=== PATIENT | female | born 1995 | race Caucasian/White ===

== ENCOUNTER → 2016-10-29 | Outpatient (REF) | payer BC, OTHER ==
[~2016-10-29] MED LIST: ACET50TA PO; DOCU10ELUD PO; IBUP600T26 PO; MOM30SS PO; PRENTAB74 PO
== END ==
LOC: M LAB REF 13:05
PROVIDERS: ATTEND Physician Assistant Medical
DX: B34.9 Viral infection, unspecified (principal)

== ENCOUNTER → 2017-07-15 | Outpatient (REF) | payer BC, OTHER | LOC: M LAB REF 13:23 | PROVIDERS: ATTEND Advanced Practice Midwife | DX: Z12.4 Encounter for screening for malignant neoplasm of cervix (principal) ==

== ENCOUNTER → 2018-11-21 | Outpatient (REF) | payer OTHER | LOC: M LAB REF 11:39 | PROVIDERS: ATTEND Physician Assistant | DX: J02.9 Acute pharyngitis, unspecified (principal) ==

== ENCOUNTER → 2019-07-09 | Outpatient (REF) | payer OTHER ==
[~2019-07-09] MED LIST changes: -ACET50TA PO; -DOCU10ELUD PO; +DOCU5LIQ PO; +MAPA500T17 PO
[2019-07-09 14:40] LABS: CHLAMYDIA DNA AMPLIFICATION NEGATIVE (NEGATIVE); GC DNA AMPLIFICATION NEGATIVE (NEGATIVE)
== END ==
LOC: M LAB REF 12:24
PROVIDERS: ATTEND Physician Assistant
DX: R30.0 Dysuria (principal)

== ENCOUNTER → 2020-08-26 | Outpatient (REF) | payer OTHER ==
[2020-08-26 22:09] LABS: APPEARANCE, URINE CLOUDY (CLEAR); BACTERIA, URINE AUTO 1+ (NEGATIVE); BILIRUBIN, URINE AUTO NEGATIVE (NEGATIVE); BLOOD, URINE BLOOD NEGATIVE (NEGATIVE); COLOR, URINE AMBER (YELLOW); GLUCOSE, URINE (UA) AUTO NEGATIVE (NEGATIVE); KETONE, URINE AUTO TRACE mg/dL (NEGATIVE); LEUKOCYTE ESTERASE, URINE AUTO 2+ (NEGATIVE); MUCUS, URINE MODERATE (NEGATIVE); NITRITE, URINE AUTO NEGATIVE (NEGATIVE); PROTEIN, URINE AUTO 1+ mg/dL (NEGATIVE); RBC, URINE AUTO 5 /HPF (0-3); SPECIFIC GRAVITY URINE AUTO 1.029 (1.002-1.035); SQUAMOUS EPITHELIAL CELL UR AU 12 /HPF (0-6); WBC, URINE AUTO 129 /HPF (0-3)
== END ==
LOC: M LAB REF 21:38
PROVIDERS: ATTEND Physician Assistant Medical
DX: N39.0 Urinary tract infection, site not specified (principal)

== ENCOUNTER 2020-11-12 06:33 | Emergency (ER) | payer OTHER ==
[~2020-11-12] VITALS: Ht 175.3 cm; Wt 107.9 kg
--- OUTSIDE RECORDS SUMMARY | 2020-11-12 06:37 | CCD ---
Author Author [facility] Organization [facility] Address Unknown Phone Unavailable Support Name Relationship Address Phone Lisbeth Clarke DDS Next Of Kin [address] [place], [place] [id number] UE Next Of Kin Unknown Unavailable GANDER [place] [address] JOAO PITTS Next Of Kin [address] [place] [address] Rigo PITTS Next Of Kin [address] [place] [address] Re-disclosure Warning The records that you are about to access may contain information from federally-assisted alcohol or drug abuse programs. If such information is present, then the following federally mandated warning applies: This information has been disclosed to you from records protected by federal confidentiality rules (42 CFR part 2). The federal rules prohibit you from making any further disclosure of this information unless further disclosure is expressly permitted by the written consent of the person to whom it pertains or as otherwise permitted by 42 CFR part 2. A general authorization for the release of medical or other information is NOT sufficient for this purpose. The Federal rules restrict any use of the information to criminally investigate or prosecute any alcohol or drug abuse patient.The records that you are about to access may contain highly sensitive health information, the redisclosure of which is protected by Article 27-F of the [facility] Public Health law. If you continue you may have access to information: Regarding HIV / AIDS; Provided by facilities licensed or operated by the [facility] Office of Mental Health; or Provided by the [facility] Office for People With Developmental Disabilities. If such information is present, then the following [facility] mandated warning applies: This information has been disclosed to you from confidential records which are protected by state law. State law prohibits you from making any further disclosure of this information without the specific written consent of the person to whom it pertains, or as otherwise permitted by law. Any unauthorized further disclosure in violation of state law may result in a fine or chcf sentence or both. A general authorization for the release of medical or other information is NOT sufficient authorization for further disc losure. Family History Family Member Name Family Member Gender Family Member Status Date o f Status Description Data Source(s) Unknown Unknown Problem [facility] colon Medications Medication Brand Name Start Date Product Form Dose Route Admi nistrative Instructions Pharmacy Instructions Status Indications Reaction Description Data Source(s) 200 mg 08/26/2020 12:00:00 AM EST tablet 9 TAKE ONE TABLET BY MOUTH THREE TIMES A DAY FOR 3 DAYS TAKE ONE TABLET BY MOUTH THREE TIMES A DAY FOR 3 DAYS SOLD: 08/26/2020 [facility] 100 mg 08/26/2020 12:00:00 AM EST capsule 14 TAKE ONE CAPSULE BY MOUTH EVERY 12 HOURS FOR 7 DAYS TAKE ONE CAPSULE BY MOUTH EVERY 12 HOURS FOR 7 DAYS SO LD: 08/26/2020 [facility] 875-125 mg 01/11/2020 12:00:00 AM EDT tablet 20 TAKE ONE TABLET BY MOUTH TWICE A DAY FOR 10 DAYS TAKE ONE TABLET BY MOUTH TWICE A DAY FOR 10 DAYS SOLD: 01/11/2020 [facility] Insurance Providers Payer name Policy type / Coverage type Policy ID Covered republican ID Covered republican's relationship to killian Policy Killian Plan Information [facility] COMMUNITY PLAN [facility] [id number] SP [id number] [facility] [id number] MO2 [id number] [place] Plan P [id number] S [id number] Medicaid Dental S [id number] S [id number] [place] Plan P [id number] S [id number] 4 Medicaid Dental S [id number] S [id number] [place] P [id number] S [id number] [place] P [id number] S [id number] BCBS [place] [id number] MO2 [id number] [place] Medig[place] Part B [id number] Self [id number] [facility] [place] Health Maintenance Organization (HMO) [id number] Family Dependent [id number] EMPIRE ([facility]) O [id number] C [id number] [facility] [id number] MO2 [id number] MEDICAID P [id number] S [id number] PENDING PENDING Results ID Date Data Source [id number] 06/16/2020 07:51:00 PM EDT [facility] Name Value Range Interpretation Code Description Data Sidra rce(s) Supporting Document(s) SARS coronavirus 2 RNA [facility] This lab was ordered by [employer] and rep orted by [facility]. Procedure
[2020-11-12] MEDS ORDERED: ACETAMINOPHEN 325 MG TAB PO ONE (07:30)
[2020-11-12 07:51] LABS: BASO % 0.3 % (0.0-1.0); EOS # 0.1 10^3/uL (0.0-0.5); EOS % 1.6 % (0.0-3.0); HEMATOCRIT 40.5 % (36.0-47.0); LYMPH # 1.7 10^3/uL (1.5-5.0); LYMPH % 25.4 % (24.0-44.0); MEAN CORPUSCULAR HEMOGLOBIN 28.1 pg (27.0-33.0); MEAN CORPUSCULAR HGB CONC 32.1 g/dl (32.0-36.5); MEAN CORPUSCULAR VOLUME 87.7 fl (80.0-96.0); MONO # 0.4 10^3/uL (0.0-0.8); MONO % 5.4 % (2.0-8.0); NEUTROPHILS # 4.5 10^3/uL (1.5-8.5); NEUTROPHILS % 66.9 % (36.0-66.0); PLATELET COUNT, AUTOMATED 288 10^3/uL (150-450); RED BLOOD COUNT 4.62 10^6/uL (4.00-5.40); WHITE BLOOD COUNT 6.7 10^3/uL (4.0-10.0)
--- OUTSIDE RECORDS SUMMARY | 2020-11-12 07:52 | CCD ---
Author Author [facility] Organization [facility] Address Unknown Phone Unavailable Support Name Relationship Address Phone Lisbeth Clarke DDS Next Of Kin [address] [place], [place] [phone] UE Next Of Kin Unknown Unavailable [place] [address] JOAO PITTS Next Of Kin [address] [place] [address] Rigo PITTS Next Of Kin [address] [place] [address] Re-disclosure Warning The records that you are [...] is protected by Article 27-F of the [facility] Public Health law. If you continue you may have access to information: Regarding HIV / AIDS; Provided by facilities licensed or operated by the [facility] Office of Mental Health; or Provided by the [facility] Office for People With Developmental Disabilities. If such information is present, then the following [facility] mandated warning applies: This information has [...] law may result in a fine or retirement sentence or both. A general authorization for the release of medical or other information is NOT sufficient authorization for further disc losure. Family History Family Member Name Family Member Gender Family Member Status Date o f Status Description Data Source(s) Unknown Unknown Problem [facility], ) colon Medications Medication Brand Name [...] type / Coverage type Policy ID Covered constitution party ID Covered constitution party's relationship to killian Policy Killian Plan Information [facility] COMMUNITY PLAN [facility] [id number] SP [id number] [facility] COMMUN[facility]AN [facility] [id number] SP [id number] [facility] [id number] MO2 [id number] [place] Plan P [id number] S [id number] 4 Medicaid Dental S [id number] S [id number] [place] Plan P [id number] S [id number] 4 Medicaid Dental S [id number] S [id number] [place] P [id number] S [id number] [place] P [id number] S [id number] BCBS [place] [id number] MO2 [id number] [place] Medig[place] Part B [id number] Self [id number] [facility] [place] Health Maintenance Organization (HMO) [id number] Family Dependent [id number] EMPIRE ([facility]) O [id number] C [id number] [facility] [id number] [facility] 09 [id number] MEDICAID P [id number] S [id number] PENDING PENDING Results ID Date Data Source [id number] 06/16/2020 07:51:00 PM EDT [facility] Name Value Range Interpretation Code Description Data Sidra rce(s) Supporting Document(s) SARS coronavirus 2 RNA [facility] This lab was ordered by [employer] and rep orted by [facility]. Procedure
[2020-11-12 08:17] LABS: INR 0.94; PROTHROMBIN TIME 12.8 SECONDS (12.5-14.3)
[2020-11-12 08:18] LABS: PARTIAL THROMBOPLASTIN TIME 33.8 SECONDS (24.2-38.5)
[2020-11-12 08:20] LABS: D-DIMER QUANT 773.69 ng/ml (<500)
[2020-11-12 08:32] LABS: ALBUMIN 3.5 GM/DL (3.2-5.2); ALT/SGPT 26 U/L (12-78); BILIRUBIN,DIRECT 0.1 MG/DL (0.0-0.2); BILIRUBIN,TOTAL 0.4 MG/DL (0.2-1.0); CK-MB VALUE MASS < 1.0 NG/ML (<3.6); CPK CREATINE PHOSPHOKINASE 80 U/L (26-192); LIPASE 101 U/L (73-393); MB/CK RELATIVE INDEX 1.25 (< OR =4); TROPONIN I < 0.02 NG/ML (< 0.10)
--- NOTE | 2020-11-12 08:34 | REP ---
INDICATION: mid back pain into chest. COMPARISON: None. TECHNIQUE: Two views FINDINGS: The lung sheets are well inflated. There is no pleural effusion, lateral pleural thickening or apical scarring. No consolidation, atelectasis, mass or pulmonary nodule identified. There is no pneumothorax or pneumomediastinum. The heart, mediastinal and hilar contours are normal. Bony thorax without a focal lesion. No free air under the diaphragm. IMPRESSION: No acute cardiopulmonary change. <Electronically signed by Juan Ramon Huynh > 11/12/20 0866
[2020-11-12] MEDS ORDERED: ISOVUE-370 76% 100ML VIAL As Ordered ONE (08:53)
--- NOTE | 2020-11-12 09:23 | REP ---
INDICATION: pleuritic chest pain, ro PE. COMPARISON: Two-view chest 11/12/2020 TECHNIQUE: CT angiogram chest performed following the intravenous administration of 75 cc of Isovue 370. Sagittal and coronal reconstruction images are performed. FINDINGS: Lungs: Clear, no infiltrate or nodule. Mediastinum: No adenopathy. Pulmonary arteries: No evidence of pulmonary embolism. Kimberley: No adenopathy. Axilla: No adenopathy. Pleura: No effusion. Heart: Not enlarged. No pericardial thickening or effusion Thoracic aorta: No aneurysm or dissection. Upper abdominal structures: No hiatal hernia. Solid organs without significant finding.. Visualized osseous structures: Unremarkable. IMPRESSION: No CT evidence of pulmonary embolism.No infiltrate, pleural effusion, pneumothorax, aortic aneurysm/dissection or mediastinal abnormality seen. <Electronically signed by Juan Ramon Huynh > 11/12/20 0951
[2020-11-12 09:33] VITALS: BP 136/66
--- NOTE | 2020-11-12 20:52 | ECGEPIP ---
[facility] - ED Test Date: 2020-11-12 Pat Name: JUN PITTS Department: Room: - Gender: Female [employer] Associate: : 1995 Requested By: ALEJANDRO Brito PA-C Order Number: [id number] Reading MD: Bonnie Darling Measurements Intervals [place] Rate: 88 P: 58 CO: 136 QRS: 32 QRSD: 88 T: 35 QT: 354 QTc: 428 Interpretive Statements Normal sinus rhythm No prior Electronically Signed on 11-12-2020 20:52:22 EST by Bonnie Darling
[2020-11-13] MEDS ORDERED: SUCR1SS PO (13:11)
[2020-11-13] MEDS ORDERED: PROT1TAB2 PO (13:11)
[2020-11-13] MEDS ORDERED: ZOFR4TAB16 PO (13:15)
== END 2020-11-12 09:34 | disposition home or self-care (01) ==
LOC: M ED 06:33
DX: M54.6 Pain in thoracic spine (principal); R09.1 Pleurisy; Z87.440 Personal history of urinary (tract) infections; Z88.2 Allergy status to sulfonamides
CPT/HCPCS: 71046; 71275; 80047; 80076; 82550; 82553; 83690; 84702; 85025; 85379; 85610; 85730; 87798; 93005; 99284; Q9967

== ENCOUNTER 2020-11-13 10:00 | Emergency (ER) | payer OTHER ==
[~2020-11-13] VITALS: Ht 175.3 cm; Wt 106.0 kg
--- OUTSIDE RECORDS SUMMARY | 2020-11-13 10:08 | CCD ---
Author Author [facility] Organization [facility] Address Unknown Phone Unavailable Support Name Relationship Address Phone Lisbeth Clarke DDS Next Of Kin [address] [place], [place] [phone] UE Next Of Kin Unknown Unavailable [place] [address] JOAO PITTS Next Of Kin [address] [place] [address] Rigo PITTS Next Of Kin [address] [place] [address] Re-disclosure Warning The records that you are [...] is protected by Article 27-F of the [facility] Public Health law. If you continue you may have access to information: Regarding HIV / AIDS; Provided by facilities licensed or operated by the [facility] Office of Mental Health; or Provided by the [facility] Office for People With Developmental Disabilities. If such information is present, then the following [facility] mandated warning applies: This information has [...] law may result in a fine or care home sentence or both. A general authorization for the release of medical or other information is NOT sufficient authorization for further disc losure. Family History Family Member Name Family Member Gender Family Member Status Date o f Status Description Data Source(s) Unknown Unknown Problem [facility], ) colon Medications Medication Brand Name [...] type / Coverage type Policy ID Covered green party ID Covered green party's relationship to killian Policy Killian Plan Information [facility] COMMUNITY PLAN [facility] [id number] SP [id number] [facility] COMMUNITY PLAN [facility] [id number] SP [id number] [facility] [id number] MO2 [id number] [place] Plan P [id number] S [id number] 4 Medicaid Dental S [id number] S [id number] [place] Plan P [id number] S [id number] 4 Medicaid Dental S [id number] S [id number] [place] P [id number] S [id number] [place] P [id number] S [id number] BCBS [place] [id number] MO2 [id number] [place]ig[place] Part B [id number] Self [id number] [facility] [place] Health Maintenance Organization (HMO) [id number] Family Dependent [id number] EMPIRE ([facility] O [id number] C [id number] [facility] [id number] [facility] 09 [id number] MEDICAID P [id number] S [id number] PENDING PENDING Results ID Date Data Source [id number] 06/16/2020 07:51:00 PM EDT [facility] Name Value Range Interpretation Code Description Data Sidra rce(s) Supporting Document(s) SARS coronavirus 2 RNA [facility] This lab was ordered by [employer] and rep orted by [facility]. Procedure
[2020-11-13] MEDS ORDERED: MORPHINE 2 MG/ML 1ML VIAL (J2270) IV ONE (10:30)
[2020-11-13] MEDS ORDERED: METOCLOPRAMIDE INJ 10MG/2ML VIAL (J2765 PER 1) IV ONE (10:30)
[2020-11-13] MEDS ORDERED: NS 1,000 ML IV ONE (10:30)
[2020-11-13 10:53] LABS: BASO % 0.3 % (0.0-1.0); EOS % 0.3 % (0.0-3.0); HEMOGLOBIN 13.6 g/dl (12.0-15.5); LYMPH # 1.6 10^3/uL (1.5-5.0); LYMPH % 22.5 % (24.0-44.0); MEAN CORPUSCULAR HEMOGLOBIN 28.9 pg (27.0-33.0); MEAN CORPUSCULAR VOLUME 85.1 fl (80.0-96.0); MONO # 0.3 10^3/uL (0.0-0.8); MONO % 4.2 % (2.0-8.0); NEUTROPHILS % 72.6 % (36.0-66.0); PLATELET COUNT, AUTOMATED 321 10^3/uL (150-450); WHITE BLOOD COUNT 6.9 10^3/uL (4.0-10.0)
--- OUTSIDE RECORDS SUMMARY | 2020-11-13 11:13 | CCD ---
Author Author [facility] Organization [facility] Address Unknown Phone Unavailable Support Name Relationship Address Phone Lisbeth Clarke DDS Next Of Kin [address] [place], [place] [phone] UE Next Of Kin Unknown Unavailable GANDER [place] [address] JOAO PITTS Next Of Kin [address] [place] [address] Rigo PITTS Next Of Kin [address] [place] [address] Re-disclosure Warning The records that you are [...] is protected by Article 27-F of the [facility] Public Health law. If you continue you may have access to information: Regarding HIV / AIDS; Provided by facilities licensed or operated by the [facility] Office of Mental Health; or Provided by the [facility] Office for People With Developmental Disabilities. If such information is present, then the following [facility] mandated warning applies: This information has [...] law may result in a fine or fci sentence or both. A general authorization for the release of medical or other information is NOT sufficient authorization for further disc losure. Family History Family Member Name Family Member Gender Family Member Status Date o f Status Description Data Source(s) Unknown Unknown Problem [facility], ) colon Medications Medication Brand [...] relationship to killian Policy Killian Plan Information [facility] COMMUNITY PLAN [facility] [id number] SP [id number] [facility] [id number] SP [id number] [facility] [id number] MO2 [id number] [place] Plan P [id number] S [id number] 4 Medicaid Dental S [id number] S [id number] [place] Plan P [id number] S [id number] 4 Medicaid Dental S [id number] S [id number] [place] P [id number] S [id number] [place] P [id number] S [id number] BCBS [place] [id number] MO2 [id number] [place] Medig[place] Part B [id number] Self [id number] [facility] [place] Health Maintenance Organization (HMO) [id number] Family Dependent [id number] EMPIRE ([facility]) O [id number] C 8 [id number] [facility] [id number] [facility] 09 [id number] MEDICAID P [id number] S [id number] PENDING PENDING Results ID Date Data Source [id number] 11/12/2020 07:33:00 AM EST [facility] Name Value Range Interpretation Code Description Data Sidra rce(s) Supporting Document(s) SARS-CoV-2 (COVID 19) NEGATIVE - SARS-CoV-2 (COVID19) [facility] This lab was ordered by [facility] a nd reported by [facility]. ID Date Data Source [id number] 06/16/2020 07:51:00 PM EDT [facility] Name Value Range Interpretation Code Description Data Sidra rce(s) Supporting Document(s) SARS coronavirus 2 RNA [facility] This lab was ordered by [facility] [facility] and rep orted by [facility]. Procedure
[2020-11-13 11:19] LABS: BLOOD UREA NITROGEN 14 MG/DL (7-18); CARBON DIOXIDE LEVEL 25 MEQ/L (21-32); CHLORIDE LEVEL 105 MEQ/L (98-107); CREATININE FOR GFR 0.76 MG/DL (0.55-1.30); GLOMERULAR FILTRATION RATE > 60.0 (>60); GLUCOSE, FASTING 107 MG/DL (70-100); POTASSIUM SERUM 3.4 MEQ/L (3.5-5.1); SODIUM LEVEL 139 MEQ/L (136-145)
[2020-11-13 11:20] LABS: ALBUMIN 3.8 GM/DL (3.2-5.2); ALT/SGPT 22 U/L (12-78); BILIRUBIN,DIRECT 0.2 MG/DL (0.0-0.2); BILIRUBIN,TOTAL 0.7 MG/DL (0.2-1.0); CALCIUM LEVEL 9.5 MG/DL (8.5-10.1); LIPASE 105 U/L (73-393); TOTAL PROTEIN 7.5 GM/DL (6.4-8.2)
[2020-11-13 11:29] LABS: HCG, SERUM QUALITATIVE NEGATIVE (NEGATIVE)
--- NOTE | 2020-11-13 11:31 | REP ---
INDICATION: mid back pain, n/v. COMPARISON: CT angio chest 11/12/2020 showing a portion of the gallbladder and some of the liver. TECHNIQUE: Right upper quadrant sonography. FINDINGS: Sonographic evaluation of the right upper quadrant shows the liver without without gross hepatomegaly. Is 1.1 x 1 cm homogeneous hyperechoic focus in the right lobe most consistent with hemangioma. No other hepatic echogenicities, cysts, biliary dilatation nor adjacent ascites. Of the gallbladder measures 9.3 x 4.3 x 4.2 cm. Along the gallbladder wall are two small echogenic nonmobile foci that may reflect polyps or small adherent, non mobile stones. These about 3.5 and 3 mm in the posterior wall. No mobile calculi, sludge, abnormal wall thickening or pericholecystic fluid. Common duct is 4.5 mm without a filling defect or dilatation. Portions of the pancreatic head are obscured by gas shadowing with the body and proximal tail seen, unremarkable without ductal dilatation. There is no peripancreatic fluid visible. No generalized ascites. The right kidney is 10.3 x 4.9 x 3.8 cm without visible stone, mass, cyst or hydronephrosis. IMPRESSION: 1. Echogenic focus in the liver consistent small hemangioma. No other hepatic finding. 2. Gallbladder with 2 hypoechoic foci adherent to the wall representing either small polyps in the 3-3.5 mm range or noncalcified adherent stones. No sludge, mobile stones, wall thickening or pericholecystic fluid. No mass of the gallbladder. 3. Common duct 3.5 mm and normal. Pancreas partially obscured by, the segments seen were unremarkable. 4. Right kidney unremarkable. <Electronically signed by Juan Ramon Huynh > 11/13/20 1121
[2020-11-13] MEDS ORDERED: GI COCKTAIL 50ML BTL(HYOSCYAMINE/MAALOX/LIDOCAINE VISCOUS)(1:3:1) PO ONE (12:00)
[2020-11-13 12:14] LABS: ERYTHROCYTE SEDIMENTATION RATE 36 mm/hr (0-20)
[2020-11-13 12:15] LABS: C REACTIVE PROTEIN QUANTITATIV 1.01 MG/DL (0.00-0.30)
[2020-11-13] MEDS ORDERED: PROT1TAB2 PO (13:11)
[2020-11-13] MEDS ORDERED: SUCR1SS PO (13:11)
[2020-11-13] MEDS ORDERED: ZOFR4TAB16 PO (13:15)
[2020-11-13 13:19] VITALS: BP 116/68
== END 2020-11-13 13:21 | disposition home or self-care (01) ==
LOC: M ED 10:00
DX: M54.6 Pain in thoracic spine (principal); K21.9 Gastro-esophageal reflux disease without esophagitis; R93.2 Abnormal findings on diagnostic imaging of liver and biliary tract; Z87.448 Personal history of other diseases of urinary system; Z88.2 Allergy status to sulfonamides
CPT/HCPCS: 76705; 80048; 80076; 83605; 83690; 84703; 85025; 85652; 86140; 87040; 96361; 96374; 96375; 99284; J2270; J2765

== ENCOUNTER → 2020-12-20 | Outpatient (REF) | payer OTHER ==
[~2020-12-20] MED LIST changes: +PROT1TAB2 PO; +SUCR1SS PO; +ZOFR4TAB16 PO
[2020-12-20 17:01] LABS: BASO % 0.4 % (0.0-1.0); EOS # 0.1 10^3/uL (0.0-0.5); EOS % 0.7 % (0.0-3.0); HEMATOCRIT 42.7 % (36.0-47.0); LYMPH # 2.3 10^3/uL (1.5-5.0); MEAN CORPUSCULAR HGB CONC 32.8 g/dl (32.0-36.5); MEAN CORPUSCULAR VOLUME 88.4 fl (80.0-96.0); MONO # 0.6 10^3/uL (0.0-0.8); MONO % 7.3 % (2.0-8.0); NEUTROPHILS # 4.6 10^3/uL (1.5-8.5); NEUTROPHILS % 60.5 % (36.0-66.0); PLATELET COUNT, AUTOMATED 360 10^3/uL (150-450); RED BLOOD COUNT 4.83 10^6/uL (4.00-5.40); WHITE BLOOD COUNT 7.6 10^3/uL (4.0-10.0)
[2020-12-20 17:07] LABS: ALBUMIN 3.9 GM/DL (3.2-5.2); ALT/SGPT 30 U/L (12-78); BILIRUBIN,TOTAL 0.5 MG/DL (0.2-1.0); BLOOD UREA NITROGEN 9 MG/DL (7-18); CALCIUM LEVEL 9.4 MG/DL (8.5-10.1); CARBON DIOXIDE LEVEL 28 MEQ/L (21-32); CHLORIDE LEVEL 105 MEQ/L (98-107); CREATININE FOR GFR 0.68 MG/DL (0.55-1.30); GLOMERULAR FILTRATION RATE > 60.0 (>60); GLUCOSE, FASTING 88 MG/DL (70-100); LIPASE 134 U/L (73-393); POTASSIUM SERUM 4.4 MEQ/L (3.5-5.1); SODIUM LEVEL 138 MEQ/L (136-145); TOTAL PROTEIN 7.6 GM/DL (6.4-8.2)
== END ==
LOC: M LAB REF 16:02
PROVIDERS: ATTEND Pediatrics
DX: R11.0 Nausea (principal)

== ENCOUNTER → 2021-02-06 | Outpatient (CLI) | payer OTHER ==
--- NOTE | 2021-02-07 04:31 | REP ---
INDICATION: RLQ PELVIC PAIN COMPARISON: None. TECHNIQUE: Transabdominal pelvic ultrasound followed by transvaginal examination for better evaluation of the endometrium and adnexa with color Doppler evaluation of the ovaries. FINDINGS: Bladder is unremarkable and measures 11.7 x 7.9 x 10.0 cm. Normal retroverted uterus measures 8.5 x 4.4 x 5.2 cm. The endometrial complex measures 3.8 mm thickness. IUD identified in central satisfactory position. Bilateral ovaries are normal in appearance and vascularity without evidence for torsion. Right ovary measures 3.1 x 1.7 x 2.1 cm; R I = 0.51. Left ovary measures 2.8 x 2.4 x 2.3 cm; R I = 0.54. Further evaluation of the right lower quadrant demonstrates no evidence for appendicitis by ultrasound. IMPRESSION: Normal pelvic ultrasound. <Electronically signed by Naldo Limon > 02/07/21 0427
== END ==
LOC: M RAD 12:56
PROVIDERS: ATTEND Pediatrics
DX: R11.0 Nausea (principal); R10.31 Right lower quadrant pain

== ENCOUNTER → 2021-05-05 | Outpatient (CLI) | payer OTHER ==
--- NOTE | 2021-05-05 11:26 | REP ---
INDICATION: NAUSEA W/ VOMITING. COMPARISON: None. TECHNIQUE/RADIOTRACER AND DOSE: After the intravenous administration of 6.6 mCi of technetium 99 M Choletec hepatobiliary imaging was performed with gallbladder ejection fraction calculation. FINDINGS: There is symmetric distribution of the radiotracer throughout the hepatocytes. The gallbladder is promptly visualized at 10 minutes. Biliary to bowel transit time is within normal limits. The gallbladder ejection fraction calculation is 74%. This is within the normal range. IMPRESSION: Within normal limits <Electronically signed by Ivan Johnson > 05/05/21 1123
== END ==
LOC: M RAD 08:18
PROVIDERS: ATTEND Internal Medicine Gastroenterology
DX: R11.2 Nausea with vomiting, unspecified (principal)
CPT/HCPCS: 78227; A9537

== ENCOUNTER → 2021-06-15 | Outpatient (CLI) | payer OTHER ==
[~2021-06-15] MED LIST changes: +TUMS500C PO
== END ==
LOC: M LABSMTC 09:53
PROVIDERS: ATTEND Anesthesiology
DX: Z01.812 Encounter for preprocedural laboratory examination (principal); Z20.822 Contact with and (suspected) exposure to COVID-19

== ENCOUNTER 2021-06-20 13:41 | Day surgery (SDC) | payer OTHER ==
[~2021-06-20] VITALS: Ht 175.3 cm; Wt 101.8 kg
[~2021-06-20 13:41] MED LIST changes: +NS 1,000 ML IV ONE
[2021-06-20] MEDS ORDERED: LIDOCAINE 2% 100MG/5ML SDV (FOR ANES.) As Ordered ONE (15:15)
[2021-06-20] MEDS ORDERED: fentaNYL 100 MCG/2 ML INJECTION (J3010) As Ordered ONE (15:15)
[2021-06-20] MEDS ORDERED: propofoL 200 MG/20 ML VIAL As Ordered ONE (15:15)
--- NOTE | 2021-06-20 15:40 | ROOR ---
Patient Name: Nimco Zuñiga Procedure Date: 06/20/2021 3:20 PM Date of : 1995 Age: 26 Room: [facility] Gender: Female Note Status: Finalized Procedure: Upper GI endoscopy Indications: Nausea Providers: Michael Keys MD Referring MD: Augustina FRANCIS MD Requesting Provider: Medicines: Monitored Anesthesia Care Complications: No immediate complications. Procedure: Pre-Anesthesia Assessment: - The heart rate, respiratory rate, oxygen saturations, blood pressure, adequacy of pulmonary ventilation, and response to care were monitored throughout the procedure. The Endoscope was introduced through the mouth, and advanced to the second part of duodenum. The upper GI endoscopy was accomplished without difficulty. The patient tolerated the procedure well. Findings: Mildly severe esophagitis was found at the gastroesophageal junction. Biopsies were taken with a cold forceps for histology. The entire examined stomach was normal. Biopsies were taken with a cold forceps for Helicobacter pylori testing. The examined duodenum was normal. Impression: - Mildly severe esophagitis. Biopsied. - Normal stomach. Biopsied. - Normal examined duodenum. Recommendation: - Use Prilosec (omeprazole) 40 mg PO daily for 3 months. - (the script was sent to your pharmacy on file) - Telephone endoscopist for pathology results in 2 weeks. Procedure Code(s): --- Professional --- 93893, Esophagogastroduodenoscopy, flexible, transoral; with biopsy, single or multiple Diagnosis Code(s): --- Professional --- R11.0, Nausea K20.9, Esophagitis, unspecified CPT copyright 2019 [employer]. All rights reserved. The codes documented in this report are preliminary and upon budget controller review may be revised to meet current compliance requirements. Michael Keys MD Michael Keys MD 06/20/2021 3:39:54 PM Electronically signed by Michael Keys MD Number of Addenda: 0 Note Initiated On: 06/20/2021 3:20 PM Estimated Blood Loss: Estimated blood loss: none.
[2021-06-20 16:28] VITALS: BP 111/67
== END 2021-06-20 16:20 | disposition home or self-care (01) ==
LOC: M OPP 13:41
PROVIDERS: ATTEND Internal Medicine Gastroenterology
DX: K20.90 Esophagitis, unspecified without bleeding (principal); R11.0 Nausea; Z79.3 Long term (current) use of hormonal contraceptives; Z88.2 Allergy status to sulfonamides
CPT/HCPCS: 43239; 88305; J3010

== ENCOUNTER → 2021-08-02 | Outpatient (REF) | payer OTHER ==
[~2021-08-02] MED LIST changes: -NS 1,000 ML IV ONE
== END ==
LOC: M SFHCWAGY 13:04
PROVIDERS: ATTEND Nurse Practitioner Women's Health
DX: Z12.4 Encounter for screening for malignant neoplasm of cervix (principal)

== ENCOUNTER → 2021-08-10 | Outpatient (REF) | payer OTHER ==
[2021-08-10 13:59] LABS: APPEARANCE, URINE CLOUDY (CLEAR); BACTERIA, URINE AUTO 1+ (NEGATIVE); BILIRUBIN, URINE AUTO NEGATIVE (NEGATIVE); BLOOD, URINE BLOOD NEGATIVE (NEGATIVE); COLOR, URINE YELLOW (YELLOW); GLUCOSE, URINE (UA) AUTO NEGATIVE (NEGATIVE); KETONE, URINE AUTO NEGATIVE (NEGATIVE); LEUKOCYTE ESTERASE, URINE AUTO 2+ (NEGATIVE); MUCUS, URINE SMALL (NEGATIVE); NITRITE, URINE AUTO NEGATIVE (NEGATIVE); PROTEIN, URINE AUTO 1+ mg/dL (NEGATIVE); RBC, URINE AUTO 12 /HPF (0-3); SPECIFIC GRAVITY URINE AUTO 1.027 (1.002-1.035); SQUAMOUS EPITHELIAL CELL UR AU 11 /HPF (0-6); UROBILINOGEN, URINE AUTO 0.2 mg/dL (0.0-2.0); WBC, URINE AUTO 68 /HPF (0-3)
== END ==
LOC: M LAB REF 12:35
PROVIDERS: ATTEND Physician Assistant Medical
DX: N30.90 Cystitis, unspecified without hematuria (principal)

== ENCOUNTER → 2021-12-11 | Outpatient (CLI) | payer OTHER | LOC: M RAD 13:39 | PROVIDERS: ATTEND Pediatrics | DX: R59.0 Localized enlarged lymph nodes (principal) ==

== ENCOUNTER → 2021-12-27 | Outpatient (REF) | payer OTHER | LOC: M LAB REF 18:43 | PROVIDERS: ATTEND Physician Assistant | DX: J02.9 Acute pharyngitis, unspecified (principal) ==

== ENCOUNTER → 2022-06-20 | Outpatient (REF) | payer OTHER | LOC: M LAB REF 13:16 | PROVIDERS: ATTEND Physician Assistant | DX: J02.9 Acute pharyngitis, unspecified (principal) ==

== ENCOUNTER → 2022-07-12 | Outpatient (REF) | payer OTHER | LOC: M LAB REF 11:59 | PROVIDERS: ATTEND Physician Assistant Medical | DX: B34.9 Viral infection, unspecified (principal) ==

== ENCOUNTER → 2022-09-27 | Outpatient (REF) | payer OTHER | LOC: M LAB REF 12:18 | PROVIDERS: ATTEND Physician Assistant | DX: J03.90 Acute tonsillitis, unspecified (principal); R50.9 Fever, unspecified ==

== ENCOUNTER → 2022-10-25 | Outpatient (REF) | payer OTHER | LOC: M LAB REF 12:30 | PROVIDERS: ATTEND Physician Assistant | DX: R07.0 Pain in throat (principal) ==

== ENCOUNTER → 2023-03-22 | Outpatient (REF) | payer OTHER ==
[2023-03-22 13:52] LABS: APPEARANCE, URINE HAZY (CLEAR); BACTERIA, URINE AUTO 1+ (NEGATIVE); BILIRUBIN, URINE AUTO NEGATIVE (NEGATIVE); BLOOD, URINE BLOOD 1+ (NEGATIVE); COLOR, URINE YELLOW (YELLOW); GLUCOSE, URINE (UA) AUTO NEGATIVE (NEGATIVE); KETONE, URINE AUTO NEGATIVE (NEGATIVE); LEUKOCYTE ESTERASE, URINE AUTO 3+ (NEGATIVE); MUCUS, URINE SMALL (NEGATIVE); NITRITE, URINE AUTO NEGATIVE (NEGATIVE); PROTEIN, URINE AUTO NEGATIVE (NEGATIVE); RBC, URINE AUTO 2 /HPF (0-3); SPECIFIC GRAVITY URINE AUTO 1.012 (1.002-1.035); SQUAMOUS EPITHELIAL CELL UR AU 6 /HPF (0-6); UROBILINOGEN, URINE AUTO 0.2 mg/dL (0.0-2.0); WBC, URINE AUTO 59 /HPF (0-3)
== END ==
LOC: M LAB REF 12:52
PROVIDERS: ATTEND Physician Assistant Medical
DX: N39.0 Urinary tract infection, site not specified (principal)

== ENCOUNTER → 2023-08-13 | Outpatient (REF) | LOC: M EMP 09:53 | PROVIDERS: ATTEND Family Medicine | DX: Z11.52 Encounter for screening for COVID-19 (principal) ==

== ENCOUNTER → 2024-03-24 | Outpatient (REF) | payer OTHER ==
[2024-03-24 13:39] LABS: APPEARANCE, URINE HAZY (CLEAR); BACTERIA, URINE AUTO 1+ (NEGATIVE); BILIRUBIN, URINE AUTO NEGATIVE (NEGATIVE); BLOOD, URINE BLOOD 1+ (NEGATIVE); COLOR, URINE AMBER (YELLOW); GLUCOSE, URINE (UA) AUTO NEGATIVE (NEGATIVE); KETONE, URINE AUTO NEGATIVE (NEGATIVE); LEUKOCYTE ESTERASE, URINE AUTO NEGATIVE (NEGATIVE); MUCUS, URINE SMALL (NEGATIVE); NITRITE, URINE AUTO POSITIVE (NEGATIVE); PROTEIN, URINE AUTO NEGATIVE (NEGATIVE); RBC, URINE AUTO 3 /HPF (0-3); SPECIFIC GRAVITY URINE AUTO 1.015 (1.002-1.035); SQUAMOUS EPITHELIAL CELL UR AU 16 /HPF (0-6); WBC, URINE AUTO 35 /HPF (0-3)
== END ==
LOC: M LAB REF 12:17
PROVIDERS: ATTEND Physician Assistant Medical
DX: N39.0 Urinary tract infection, site not specified (principal)

== ENCOUNTER → 2024-04-17 | Outpatient (REF) | payer OTHER ==
[2024-04-17 14:01] LABS: BASO % 0.8 % (0.0-1.0); EOS # 0.1 10^3/uL (0.0-0.5); EOS % 1.8 % (0.0-3.0); HEMATOCRIT 43.1 % (36.0-47.0); LYMPH # 1.8 10^3/uL (1.5-5.0); MEAN CORPUSCULAR HEMOGLOBIN 30.1 pg (27.0-33.0); MEAN CORPUSCULAR HGB CONC 32.5 g/dl (32.0-36.5); MEAN CORPUSCULAR VOLUME 92.7 fl (80.0-96.0); MONO # 0.3 10^3/uL (0.0-0.8); MONO % 6.5 % (2.0-8.0); NEUTROPHILS # 1.7 10^3/uL (1.5-8.5); NEUTROPHILS % 44.9 % (36.0-66.0); PLATELET COUNT, AUTOMATED 262 10^3/uL (150-450); RED BLOOD COUNT 4.65 10^6/uL (4.00-5.40); WHITE BLOOD COUNT 3.9 10^3/uL (4.0-10.0)
[2024-04-17 14:03] LABS: ALBUMIN 3.9 G/DL (3.2-5.2); ALKALINE PHOSPHATASE 50 U/L (46-116); ALT/SGPT 39 U/L (7.0-40); AST/SGOT 31 U/L (<34); BILIRUBIN,TOTAL 0.6 MG/DL (0.3-1.2); BLOOD UREA NITROGEN 14 MG/DL (9-23); CALCIUM LEVEL 9.3 MG/DL (8.5-10.1); CARBON DIOXIDE LEVEL 28 MMOL/L (20-31); CHLORIDE LEVEL 108 MMOL/L (98-107); CREATININE FOR GFR 0.72 MG/DL (0.55-1.30); GLOMERULAR FILTRATION RATE > 60.0 (>60); GLUCOSE, FASTING 83 MG/DL (60-100); POTASSIUM SERUM 4.3 MMOL/L (3.5-5.1); SODIUM LEVEL 141 MMOL/L (136-145); TOTAL PROTEIN 6.8 G/DL (5.7-8.2)
[2024-04-17 14:04] LABS: THYROID STIMULATING HORMONE 1.066 uIU/ML (0.55-4.78)
[2024-04-17 14:17] LABS: ERYTHROCYTE SEDIMENTATION RATE 15 mm/hr (0-20)
== END ==
LOC: M LAB REF 12:21
PROVIDERS: ATTEND Pediatrics
DX: F41.1 Generalized anxiety disorder (principal); K21.00 Gastro-esophageal reflux disease with esophagitis, without bleeding; R68.84 Jaw pain

== ENCOUNTER → 2024-05-15 | Outpatient (CLI) | payer OTHER | LOC: M RAD 09:09 | PROVIDERS: ATTEND Pediatrics | DX: R68.84 Jaw pain (principal) ==

== ENCOUNTER 2024-07-22 00:08 | Emergency (ER) | payer OTHER ==
[~2024-07-22] VITALS: Ht 175.3 cm; Wt 86.0 kg
[2024-07-22] MEDS ORDERED: CYCL-707 PO (00:19)
[2024-07-22] MEDS ORDERED: MELO15TA28 PO (00:19)
[2024-07-22] MEDS: ONDANSETRON 4MG ORAL DISINTEGRATING TAB PO ONE (00:44)
[2024-07-22] MEDS: PERCOCET 5MG/325MG TAB PO ONE (00:44)
[2024-07-22] MEDS: dexAMETHasone 4 MG TAB PO ONE (01:31)
[2024-07-22 01:33] VITALS: BP 113/72; TEMP 98.1; O2SAT 99
== END 2024-07-22 01:35 | disposition home or self-care (01) ==
LOC: M ED 00:08
DX: M26.621 Arthralgia of right temporomandibular joint (principal); Z88.2 Allergy status to sulfonamides; Z79.899 Other long term (current) drug therapy

== ENCOUNTER → 2024-10-25 | Outpatient (REF) | payer OTHER ==
[~2024-10-25] MED LIST changes: +CYCL-707 PO; +MELO15TA28 PO
== END ==
LOC: M LAB REF 17:41
PROVIDERS: ATTEND Physician Assistant Medical
DX: B34.9 Viral infection, unspecified (principal)

== ENCOUNTER → 2025-07-06 | Outpatient (CLI) | payer OTHER ==
[~2025-07-06] MED LIST changes: +CYCL5TAB4 PO
== END ==
LOC: M RAD 13:47
PROVIDERS: ATTEND Physician Assistant Medical
DX: R06.02 Shortness of breath (principal); R05.9 Cough, unspecified; B34.9 Viral infection, unspecified

== ENCOUNTER → 2025-07-06 | Outpatient (REF) | payer OTHER | LOC: M LAB REF 16:54 | PROVIDERS: ATTEND Physician Assistant Medical | DX: B34.9 Viral infection, unspecified (principal) ==